=== PATIENT | male | born 1970 | race Caucasian/White ===

== ENCOUNTER → 2020-11-14 16:18 | Outpatient (CLI) | payer OTHER, SELFPAY ==
--- NOTE | 2020-11-14 16:22 | DI.CT.S_ITS ---
PROCEDURE: CT LUMBAR SPINE WO CON INDICATIONS: Spinal stenosis, lumbar region with neurogenic cla TECHNIQUE: Noncontrast 3 mm thick sections acquired from the T12 level to the sacrum. Sagittal and coronal reformats were constructed. For radiation dose reduction, the following was used: automated exposure control. COMPARISON: None. FINDINGS: Image quality: Excellent. Bones: There is transitional anatomy with left jamila lumbarization of the S1 vertebral body and non-rudimentary S1-S2 disc. There is trace L1-L2 and L4-L5 retrolisthesis. No acute vertebral body compression fractures. No suspicious lytic or blastic bony lesions. No pars defects. T12-L1: Slight loss of disc height. Minimal, diffuse disc bulge. No central stenosis. No neural foraminal narrowing. No neural compression. L1-L2: Slight loss of disc height. Mild, diffuse disc bulge. No central stenosis. No neural foraminal narrowing. No neural compression. L2-L3: Disc height is normal. Disc annulus calcifications noted. Mild, diffuse disc bulge. No central stenosis. No neural foraminal narrowing. No neural compression. L3-L4: Disc height is normal. Mild, diffuse disc bulge. Mild narrowing of the central canal. No neural foraminal narrowing. No neural compression. L4-L5: Slight loss of disc height. Moderate, diffuse disc bulge. Mild bilateral facet hypertrophy. Moderate narrowing of the central canal. Moderate bilateral neural foraminal narrowing. No neural compression. L5-S1: Loss of disc height. Vacuum disc phenomenon. Moderate, diffuse disc bulge. Small central disc protrusion. Mild bilateral facet hypertrophy. Mild to moderate narrowing of the central canal. Moderate right and moderate to severe left neural foraminal narrowing with slight compression of the exiting left L5 nerve root. S1-S2 disc height is normal. Mild bilateral facet hypertrophy. No central stenosis. No neural foraminal narrowing. No neural compression. 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 Soft tissues: No retroperitoneal masses or hematomas. Visualized aorta is normal in caliber. IMPRESSION: 1. Transitional anatomy with left jamila-lumbarization of the S1 vertebral body and non-rudimentary S1-S2 disc. 2. Multilevel degenerative disc disease. 3. Multilevel facet arthropathy. 4. No severe central canal narrowing. 5. Moderate to severe left L5-S1 neural foraminal narrowing with slight compression of the exiting left L5 nerve root. Dictated by: Anabel Guevara MD, PhD on 11/14/2020 at 16:47 Approved by: Anabel Guevara MD, PhD on 11/14/2020 at 16:54
== END ==
PROVIDERS: PCP Internal Medicine; Referring Provider Orthopaedic Surgery Orthopaedic Surgery of the Spine; Visit Provider Orthopaedic Surgery Orthopaedic Surgery of the Spine
DX: M48.062 Spinal stenosis, lumbar region with neurogenic claudication (principal)
CPT/HCPCS: 72131